=== PATIENT | female | born 1995 | race Caucasian/White ===

== ENCOUNTER 2021-11-12 17:09 | Emergency (ER) | payer OTHER ==
[~2021-11-12] VITALS: Ht 154.9 cm; Wt 63.5 kg
[2021-11-12 17:09] VITALS: BP 131/85
== END 2021-11-12 22:49 | disposition left against medical advice (07) ==
LOC: ER 17:09
DX: F41.9 Anxiety disorder, unspecified (principal); Z53.21 Procedure and treatment not carried out due to patient leaving prior to being seen by health care provider